=== PATIENT | female | born 1970 | race African-American/Black ===

== ENCOUNTER 2023-05-27 10:20 | Emergency (ER) | payer MEDICAID ==
[~2023-05-27] VITALS: Ht 165.1 cm; Wt 79.0 kg
[2023-05-27 10:23] VITALS: TEMP 97.8; O2SAT 100
[2023-05-27] MEDS ORDERED: NAPR500T7 MT (11:26)
[2023-05-27] MEDS ORDERED: T3 PO (11:26)
[2023-05-27] MEDS: HYDROCODONE/ACETAMINOPHEN 5/325MG TABLET PO STA (11:45)
[2023-05-27 11:56] VITALS: BP 152/87; PULSE 72; RESP 18
== END 2023-05-27 11:57 | disposition home or self-care (01) ==
LOC: ER 10:20
DX: S30.0XXA Contusion of lower back and pelvis, initial encounter (principal); W18.30XA Fall on same level, unspecified, initial encounter; Y93.89 Activity, other specified; Y92.89 Other specified places as the place of occurrence of the external cause; Y99.8 Other external cause status
CPT/HCPCS: 72100; 99283